=== PATIENT | female | born 1980 | race Caucasian/White ===

== ENCOUNTER 2017-10-17 09:40 | Emergency (ER) | payer OTHER ==
[~2017-10-17] VITALS: Ht 149.9 cm; Wt 69.1 kg
[~2017-10-17 09:40] MED LIST: NOCURR
[2017-10-17] MEDS ORDERED: ALBUTEROL SULFATE HFA 90 MCG/PUFF 8 GM INHALER IH ONE (11:00)
[2017-10-17 11:43] VITALS: BP 119/76
== END 2017-10-17 12:14 | disposition home or self-care (01) ==
LOC: EMS 09:42
DX: J40 Bronchitis, not specified as acute or chronic (principal); R51 Headache; J34.89 Other specified disorders of nose and nasal sinuses
CPT/HCPCS: 94640; 99283; J3535

== ENCOUNTER 2024-11-01 03:27 | Emergency (ER) | payer OTHER ==
[~2024-11-01] VITALS: Ht 149.9 cm; Wt 79.5 kg
[2024-11-01 03:37] VITALS: TEMP 98.3
[2024-11-01 04:23] VITALS: BP 162/88; PULSE 99; RESP 18; O2SAT 99
[2024-11-01] MEDS ORDERED: MICO15CR9 VG (04:44)
[2024-11-01] MEDS ORDERED: IBUP-1554 PO (04:44)
[2024-11-01] MEDS ORDERED: CEPH-558 PO (04:44)
[2024-11-01] MEDS ORDERED: ACET-66 PO (04:44)
[2024-11-01] MEDS: ACETAMINOPHEN 500 MG TABLET PO ONE (05:02)
[2024-11-01] MEDS: CEPHALEXIN MONOHYDRATE 500 MG CAPSULE PO ONE (05:02)
== END 2024-11-01 05:28 | disposition home or self-care (01) ==
LOC: EMS 03:30
DX: N76.4 Abscess of vulva (principal); N76.0 Acute vaginitis
CPT/HCPCS: 99283